=== PATIENT | female | born 1975 | race Caucasian/White ===

== ENCOUNTER 2022-08-05 00:12 | Day surgery (SDC) | payer OTHER, SELFPAY ==
[2022-07-27 12:38] VITALS: BMI 24.1
--- NOTE | 2022-07-27 12:41 | PC.NURSE ---
Report to the Outpatient Waiting Room, entrance under the green pavilion located off [facility], at time 10:00 on date 08/05/22. Planned Procedure Time: 12:00. Time changes happen often and if your time is changed the preop area will call you the afternoon before. - You and your visitor will be asked to self-screen and do not enter if you have any COVID symptoms. - Only one visitor is requested with a max of two and NO children visitors are allowed at this time. - The patient visitor may be requested to leave or wait in car when not with patient due to distancing restrictions. - A mask is optional within the hospital at this time. Patients may have clear liquids (water, carbonated beverages, clear teas, apple juice) until 3 hours prior to surgery (9:00) with a maximum of 20 ounces. - No food from midnight until time of surgery Take the following medications with a SIP of water the morning of surgery: NONE DO NOT STOP ANY OF YOUR OTHER PRESCRIPTION MEDICATIONS PRIOR TO SURGERY EXCEPT THE FOLLOWING Medications to discontinue per physician: N/A Date to take last dose: N/A Please no make-up, nail sami, hairspray, perfume, deodorant, or body powder the day of surgery. No jewelry (including any body piercings) or valuables the day of surgery, leave them at home. Please take a shower or bath the night before, or the morning of, surgery with an antibacterial soap. Wear comfortable, loose fitting clothing. - Jewelry must be removed prior to entering the operating room. Rings and piercings that are not removed may be cut off. - The hospital will not accept responsibility for valuables. - Please leave all valuables, including medications, at home the day of surgery. If you are going home after surgery, a licensed hyster driver must drive you home. - NO public transportation without another adult if you receive anesthesia. - We recommend that an adult stay with you for 24 hours following discharge. - We also recommend that you do not drive, make important decision, drink alcoholic beverages, or take any drugs that were not prescribed by your health care provider for at least 24 hours after your discharge time. Follow any additional instructions given to you from your surgeon. If you or anyone in your household have experienced Covid symptoms in the past week, please notify your surgeon or the nurse liaison at the phone number below for possible testing. Telephone instructions given to PT - TIMOTHY PHELAN and asked if any additional questions and then verbalized understanding. Patient advised to call surgeon office or pre surgery nurse liaison [phone] if any additional questions.
[2022-08-05] VITALS (12 sets, daily range): BP systolic 98–143; BP diastolic 55–90; PULSE 70–97; RESP 13–18; TEMP 36.1–36.4; O2SAT 97–100
--- NOTE | 2022-08-05 06:02 | ECG_ITS ---
Measurements Intervals [place] Rate: 64 P: 66 [place]: 122 QRS: 68 QRSD: 82 T: 75 QT: 349 QTc: 361 Interpretive Statements SINUS RHYTHM NORMAL ECG NO PREVIOUS ECG AVAILABLE FOR COMPARISON Electronically Signed On 08-06-2022 14:52:24 CDT by Sriram Salguero M.D.
[2022-08-05 10:44] LABS: Urine Cotinine NEGATIVE
[2022-08-05 10:49] LABS: Hematocrit 46.3 % (37.0-47.0); Hemoglobin 15.8 g/dL (12.0-15.0)
[2022-08-05] MEDS: LACTATED RINGERS 1,000 ML 30 ML IV CONT ×2 (10:50→15:43)
[2022-08-05] MEDS: SCOPOLAMINE 1.5 MG PATCH TRANSDERM (10:51)
--- NOTE | 2022-08-05 11:15 | WPDANESEPPF ---
Anes - Initial Pre Proc Eval Procedure: Operation Date: 08/05/22 12:00 Proposed Procedures p Abdominoplasty with Liposuction - Santosh Zhao MD Date/Time: 08/05/22 11:15 Surgeon: Santosh Zhao MD Pre Op Diagnosis: skin laxity, localized adiposity Patient Data Age: 46 Gender: F Height: 1.65 m Weight: 66.5 kg Last Vital Signs Temp 97.0 F L 08/05/22 10:58 Pulse 83 08/05/22 10:58 Resp 18 08/05/22 10:58 BP 114/69 08/05/22 10:58 Pulse Ox 100 08/05/22 10:58 Allergies Allergy/AdvReac Type Severity Reaction Status Date / Time Sulfa (Sulfonamide Allergy Rash Verified 08/05/22 10:57 Antibiotics) Home Medications Medication Instructions Recorded Confirmed Type dextroamphetamine-amphetamine ER 30 mg PO DAILY 07/27/22 08/05/22 History 30 mg 24hr capsule,extend release (Adderall XR) Laboratory Tests 08/05/22 08/05/22 10:13 10:44 Hgb Pending Hct Pending Cotinine Negative Patient hx anesthesia problems: post op nausea/vomiting Family hx anesthesia problems: none Results Review: All pre-operative results and documents have been reviewed as part of the pre-operative evaluation. ON LICENSE OF [facility] Social History Social History Smoking status: Never smoker Alcohol intake: current Drinks per week: 4 Substance use: never Substance use type: does not use Living arrangements: with family Spiritual care concerns: No Anes - Eval Final PreProcedure Day of Procedure 08/05/22 11:15 Patient weight: normal Heart: regular rate and rhythm Lungs: clear to auscultation Airway: Mallampati scale class II Neurological: alert and oriented Last oral intake: >/= 8 hours ASA classification: II Emergent: no Anesthetic plan: proceed Anesthesia type and monitoring: general ETT and standard monitoring Results Review: All pre-operative results and documents have been reviewed as part of the pre-operative evaluation. Informed Consent: The patient's anesthetic plan and its attendant risks and benefits were discussed with the patient/family/POA. Questions were solicited and answers provided to the satisfaction of the patient/family/POA.
--- NOTE | 2022-08-05 11:23 | WPDHPUPDATE1 ---
History and Physical Update Update Date/Time: 08/05/22 11:23 History and Physical has been reviewed, including an updated exam of the patient. There are NO changes in the patient's condition. Risks, benefits, and alternatives have been discussed and questions answered. Patient agrees to proceed with procedure.
--- NOTE | 2022-08-05 11:24 | W.PM.PROC2 ---
Procedure Note - Detailed Date of Procedure 08/05/22 Pre-op Diagnosis skin laxity, localized adiposity Post-op Diagnosis Same Procedure Performed Progressive tension abdominoplasty with suction lipectomy Surgeon Santosh Zhao MD Anesthesia General Findings Tissue removed: 1283 grams Lipoaspirate: 1300 cc Description of Procedure They are here today for abdominoplasty. Previously and again today the risks, benefits, alternatives were discussed in extensive detail. I wanted them to be very realistic about the risks involved as well as expectations. We discussed aftercare and what to monitor for. I was very upfront about the risks of wound breakdown leading to loss of skin, open wounds, and need for additional procedures with permanent abdominal deformity. We discussed DVT/PE risks and management. Made sure answered all of their questions to their satisfaction today and consent was obtained. They were marked in the preoperative holding area with their verification. The patient was taken to the operating room placed supine on the operating table. Anesthesia was provided by anesthesiology. A Ku catheter was started. They were prepped and draped in a standard sterile fashion. A surgical time-out was taken. I placed the patient in a flexed position to verify the upper and lower markings would reach. I then placed supine. A thorough abdominal examination was completed. Stab incisions were made and tumescent solution infiltrated. Once adequate time was allowed for hemostasis a 5mm basket cannula was utilized in conjunction with a 3mm cannula to complete suction lipectomy based on S.A.F.E. technique in multiple planes and passes. There were turned to bilateral lateral decubitus position with care taken to protect them for injury during this process. Suction lipectomy continued to result based on pre-operative planning, intra-operative observation, and rolling pinch test which were in full agreement. A 10 blade was used to make the upper incision. I continued dissection down to the level of fascia. Elevated just what was necessary for repair of the diastasis. I then again flexed the bed to verify the upper skin flap would reach the lower markings without tension. Once verified I placed her supine once again and a 10 blade used to make the lower incision. I elevated up to level the umbilicus and left the umbilicus intact on a well-vascularized stalk. The intervening tissue was removed. A 2 mm blunt cannula with 0.5% bupivicaine was injected deep to the fascia bilaterally. I plicated the diastasis recti using 0 PDO stratafix barbed suture. This was in 2 separate layers using 2 separate sutures as well. I repaired around the umbilicus leaving plenty of room for well-vascularized stalk of the umbilicus with 2-0 PDS. I also repaired lateral to the rectus using two layers of 0 PDO stratafix. The patient was flexed and starting from superior to inferior began plication using 2-0 Vicryl to obliterate all space in a standard progressive tension fashion. At the umbilicus I marked out the location of the skin and inset this with 3-0 Monocryl and 4-0 Vicryl. I continued the remainder of the plication using 2-0 Vicryl until I reached my lower planned scar line. I trimmed any excess skin of the upper flap making sure this was a tension-free closure. A right 15 emeli drain was placed. I then approximated using a 3 point suture with 2-0 Vicryl followed by 3-0 stratafix ,running subcuticular 4-0 Monocryl, and tissue glue. Fluffs and an abdominal binder were placed. The patient was transferred to the bed in a flexed position. Aw[place] and taken to the PACU without difficulty. All instrument and sponge counts were correct at the end of the case. Estimated Blood Loss 75 Drains Yes (15 Emeli ) Packing No Pathology None sent Complications No immediate complications Condition Stable Disposition PACU
[2022-08-05] MEDS: ceFAZolin 2 GM/D5W 50 ML 2 GM/50 ML BAG IVPB (12:07)
[2022-08-05] MEDS: LACTATED RINGERS IRRIG 1,000 ML, LIDOCAINE HCL 1% LOCAL INJ 50 ML, EPINEPHrine HCL INJ ... INFILTRATE (12:07)
[2022-08-05] MEDS: BUPIVACAINE/EPINEPHRINE 0.5% 50 ML VIAL 60 ML INFILTRATE (12:07)
[2022-08-05] MEDS: TRANEXAMIC ACID 1,000MG/ISO100 1,000 MG/100 ML BAG 200 MG IVPB (12:15)
--- NOTE | 2022-08-05 14:01 | SUR.OPER ---
1 ampule of fentanyl checked out and given to Katherine Shane [employer]
[2022-08-05] MEDS: fentaNYL CITRATE INJ (*CRX) 100 MCG/2 ML VIAL 25 MCG IV PUSH (17:02)
[2022-08-05] MEDS: diphenhydrAMINE HCl INJ 50 MG/ML VIAL 25 MG IV PUSH (17:30)
[2022-08-05] MEDS: carisoprodoL (*CRX) 350 MG TABLET PO (18:54)
[2022-08-05] MEDS: ONDANSETRON INJ 4 MG/2 ML VIAL IV PUSH (18:57)
[2022-08-05] MEDS: KETOROLAC 15 MG/ML VIAL (*BKC) IV PUSH (18:57)
[2022-08-05] MEDS: DOCUSATE SODIUM 100 MG CAPSULE PO (21:32)
[2022-08-05] MEDS: ENOXAPARIN 40 MG/0.4 ML SYRINGE SUB-Q (21:32)
[2022-08-05] MEDS: oxyCODONE/ACETAMINOPHEN (*CRX) 5-325 MG TABLET PO (21:33)
[2022-08-06 00:45] VITALS: BP 93/52; PULSE 87; RESP 16; TEMP 36.8
[2022-08-06] MEDS: carisoprodoL (*CRX) 350 MG TABLET PO ×2 (00:47→07:21)
[2022-08-06 04:55] VITALS: BP 88/46; PULSE 90; RESP 16; TEMP 36.9
[2022-08-06 07:30] VITALS: BP 103/45; PULSE 81; RESP 16; TEMP 36.7; O2SAT 100
--- NOTE | 2022-08-06 07:32 | WPDPN ---
Progress Note: A&P Assessment and Plan (1) Skin laxity: Code(s): L57.4 - Cutis laxa senilis Status: Acute Assessment and Plan: Doing well after progressive tension abdominoplasty. Will discharge home. Today we had a lengthy discussion about the care. Activity limitations. What to monitor for. We discussed what is a medical emergency and when to proceed to the ER / dial 911. Call with all other questions or concerns. Will see her back. (2) Localized adiposity: Code(s): E65 - Localized adiposity Status: Acute Subjective Date/time seen: 08/06/22 07:32 Interval history: She is doing very well after progressive tension abdominoplasty. Pain controlled. No n/v. No f/c. No SOB. No CP. No calf tenderness. She had a little lightheadedness with ambulation last evening however today has ambulated with no concerns. She states her BP is always SBP < 100 and this is her baseline and she feels great now. Review of Systems Review of Systems: All systems reviewed & are unremarkable except as noted in HPI and below Exam Narrative: Alert & Oriented NOD Respiratory unlabored Abdomen healing well. No signs of infection. No hematoma. No seroma. Good color / calf refill. Drain removed. No calf tenderness. Negative Hudson's Objective Data Vital Signs Vital Signs: Vital Signs - 24 hr 08/05/22 10:58 08/05/22 15:43 08/05/22 16:00 Temperature 36.1 C L 36.2 C L Pulse Rate 83 74 70 Respiratory Rate 18 17 14 Blood Pressure 114/69 98/55 L 102/58 L Pulse Oximetry 100 100 100 Oxygen Delivery Simple Face Mask Simple Face Mask Oxygen Flow Rate 8 8 08/05/22 16:15 08/05/22 17:15 08/05/22 16:30 Temperature Pulse Rate 77 84 80 Respiratory Rate 14 13 15 Blood Pressure 138/83 131/90 131/84 Pulse Oximetry 98 100 100 Oxygen Delivery Room Air Room Air Room Air Oxygen Flow Rate 08/05/22 16:45 08/05/22 17:00 08/05/22 17:30 Temperature Pulse Rate 88 91 93 Respiratory Rate 16 15 14 Blood Pressure 143/86 H 124/68 127/78 Pulse Oximetry 100 100 100 Oxygen Delivery Room Air Room Air Room Air Oxygen Flow Rate 08/05/22 17:45 08/05/22 17:53 08/05/22 18:52 Temperature Pulse Rate 97 95 Respiratory Rate 16 16 Blood Pressure 133/81 143/77 H Pulse Oximetry 97 97 Oxygen Delivery Room Air Room Air Room Air Oxygen Flow Rate 08/05/22 18:52 08/06/22 00:45 08/06/22 04:55 Temperature 36.4 C 36.8 C 36.9 C Pulse Rate 89 87 90 Respiratory Rate 16 16 16 Blood Pressure 104/68 93/52 L 88/46 L Pulse Oximetry 100 Oxygen Delivery Oxygen Flow Rate Intake/Output Intake/Output: Intake & Output 08/03/22 08/04/22 08/05/22 08/06/22 23:59 23:59 23:59 23:59 Intake Total 850 1000 Output Total 675 450 Balance 175 550 Meds/Results Medications: Active Medications Generic Name Dose Route Start Last Admin Trade Name Freq PRN Reason Stop Dose Admin Carisoprodol 350 mg 08/05/22 18:00 08/06/22 07:21 Carisoprodol (*Crx) 350 Mg Tablet PO 350 mg Q6HR YONY Administration Diazepam 5 mg 08/05/22 15:29 Diazepam (*Crx) 5 Mg Tablet PO TID PRN Anxiety Docusate Sodium 100 mg 08/05/22 21:00 08/05/22 21:32 Docusate Sodium 100 Mg Capsule PO 100 mg Q12HR YONY Administration Enoxaparin Sodium 40 mg 08/05/22 21:00 08/05/22 21:32 Enoxaparin 40 Mg/0.4 Ml Syringe SUB-Q 40 mg DAILY YONY Administration Lactated Ringer's 1,000 mls @ 125 mls/hr 08/05/22 15:30 08/05/22 18:37 Lr - Lactated Ringers Iv IV CONT Not Given .Q8H YONY Ketorolac Tromethamine 15 mg 08/05/22 15:29 08/05/22 18:57 Ketorolac 15 Mg/Ml Vial (*Bkc) IV PUSH 15 mg Q6H PRN Administration Pain Rated 4-6 Morphine Sulfate 2 mg 08/05/22 15:29 Morphine Sulfate (*Crx) 2 Mg/Ml Inj IV PUSH Q2H PRN Pain Ondansetron HCl 4 mg 08/05/22 15:29 08/05/22 18:57 Ondansetron Inj 4 Mg/2 Ml Vial IV PUSH 4 mg Q6H PRN Administration
--- NOTE | 2022-08-06 07:37 | P.DS_ITS ---
DS: Admitting Diagnosis Discharge Date 08/06/2022 Admitting Diagnosis Skin laxity Localized adiposity DS: Discharge Diagnosis Discharge Diagnosis (1) Skin laxity: Code(s): L57.4 - Cutis laxa senilis Status: Acute (2) Localized adiposity: Code(s): E65 - Localized adiposity Status: Acute DS: Summary Hospital Course Hospital Course: Underwent progressive tension abdominoplasty with suction lipectomy. Post-op has done well. Will discharge home. Time Spent with Patient Time attestation: Total time spent providing and/or coordinating discharge services: Exam Narrative: Alert & Oriented NOD Respiratory unlabored Abdomen healing well. No signs of infection. No hematoma. No seroma. Good color / calf refill. Drain removed. No calf tenderness. Negative Hudson's DS: Data Data Completed and Pending Labs on day of discharge: Labs from last 24 hours 08/05/22 08/05/22 10:44 10:13 Hgb 15.8 H Hct 46.3 Cotinine Negative Discharge Plan Discharge Patient Disposition: Home, Self-Care Discharge Instructions: POST OPERATIVE DISCHARGE INSTRUCTIONS SANTOSH ZHAO M.D. [facility] [facility] [address] [place] [address] * No driving for 24 hours after anesthesia and while you are taking pain medication. * Take all prescribed medication as directed * Diet as tolerated. * No lifting or activity that raises blood pressure for 48 hours. * Regular walking / ambulation. * May shower 24 hours after surgery. Once you shower do not take pain medication before showering as the combination of medication and heat may cause you to feel dizzy or pass out. * No pools or tubs for 2 weeks. * Slowly stand up straight as tolerated. * No straining or lifting more than 20 pounds. * If no bowel movement within 24 hours may use laxative. * Call with any questions or concerns. * Dressing Care: Continue abdominal binder / foam 23 hours per day. If you have any questions or concerns, please call the office . If it is after hours you will be directed to the refrigeration plant operator exchange. Shortness of breath, chest pain, or other medical emergency dial 911 / proceed to the Emergency Room. Stand Alone Forms: General Discharge Instructions Follow-up/Referrals: Santosh Zhao MD [Physician] - 1 Week Discharge Medications: Continued dextroamphetamine-amphetamine [Adderall XR] 30 mg Capsule,Extended Release 24hr 30 mg PO DAILY
[2022-08-06] MEDS: oxyCODONE/ACETAMINOPHEN (*CRX) 5-325 MG TABLET PO (08:37)
[2022-08-06] MEDS: DOCUSATE SODIUM 100 MG CAPSULE PO (08:37)
--- NOTE | 2022-08-06 09:49 | WPDANESPN ---
Anes - Prog Note Post-Op Date/Time: 08/06/22 09:49 Cardiovascular status: normal Respiratory status: normal Airway patency: baseline Mental status: baseline Post-Op hydration status: normal Vital Signs: Last Vital Signs Temp 36.7 C 08/06/22 07:30 Pulse 81 08/06/22 07:30 Resp 16 08/06/22 07:30 BP 103/45 L 08/06/22 07:30 Pulse Ox 100 08/06/22 07:30 O2 Del Method Room Air 08/05/22 18:52 O2 Flow Rate 8 08/05/22 16:00 Pain Score (VAS): 2 I/O: Intake & Output 08/05/22 08/06/22 08/06/22 23:59 07:59 15:59 Intake Total 700 1000 Output Total 675 450 Balance 25 550 Laboratory Tests 08/05/22 10:44 08/05/22 08/05/22 10:13 10:44 Hgb 15.8 H Hct 46.3 Cotinine Negative Post-procedural complaints: none Patient Feedback: Patient satisfied with anesthetic care.
== END 2022-08-06 10:10 | disposition home or self-care (01) ==
LOC: ANHSURGERY 11:25 → ANHOB2 18:26
PROVIDERS: Anesthesiology; Visit Provider Surgery Plastic and Reconstructive Surgery
PROC: (CPT 15830; principal; 2022-08-05 12:00)
DX: Z41.1 Encounter for cosmetic surgery (principal); L57.4 Cutis laxa senilis; E65 Localized adiposity
CPT/HCPCS: 15830; 15847; 15877; 80307; 85014; 85018; 93005; 99199; A9270; J0171; J0690; J1100; J1170; J1200; J1650; J1885; J2250; J2370; J2405; J2704; J2710; J3010; J7120

== ENCOUNTER 2024-08-08 01:00 | Day surgery (SDC) | payer OTHER, SELFPAY ==
[2024-07-30 11:27] VITALS: BMI 24.1
--- NOTE | 2024-07-30 11:28 | PC.NURSE ---
Report to the Outpatient Waiting Room, entrance under the green pavilion located off [facility], at time _0600_ on date _[id number]_. Planned Procedure Time: _0730_.? Time changes happen often and if your time is changed the preop area will call you the afternoon before. - You and your visitor will be asked to self-screen and do not enter if you have any COVID symptoms. Please call surgeon if you need to reschedule. - A mask is optional within the hospital at this time. Patients may have clear liquids (water, carbonated beverages, clear teas, apple juice) until 3 hours prior to surgery with a maximum of 20 ounces. - No food from midnight until time of surgery and no smoking, or chewing tobacco (or any form of nicotine). No chewing gum, candy or mints. Take only the following medications with a SIP of water on the morning of surgery: ___None____ DO NOT STOP ANY OF YOUR OTHER PRESCRIPTION MEDICATIONS PRIOR TO SURGERY EXCEPT THE FOLLOWING Hold all vitamins and supplements for 3 days per anesthesiologist. Medications to discontinue per physician Date to take last dose Please no make-up, nail croatian, hairspray, perfume, deodorant, or body powder the day of surgery.? No jewelry (including any body piercings) or valuables the day of surgery, leave them at home.? Please take a shower or bath the night before, or the morning of, surgery with an antibacterial soap.? Wear comfortable, loose fitting clothing.? - Jewelry must be removed prior to entering the operating room.? Rings and piercings that are not removed may be cut off. - The hospital will not accept responsibility for valuables.? - Please leave all valuables, including medications, at home the day of surgery. If you are going home after surgery, a licensed transit driver must drive you home.? - NO public transportation without another adult if you receive anesthesia. - We recommend that an adult stay with you for 24 hours following discharge. - We also recommend that you do not drive, make important decision, drink alcoholic beverages, or take any drugs that were not prescribed by your health care provider for at least 24 hours after your discharge time. Follow any additional instructions given to you from your surgeon. Telephone instructions given to __Ama___and asked if any additional questions and then verbalized understanding. Patient advised to call surgeon office or pre surgery nurse liaison [phone] if any additional questions.
[2024-08-08] VITALS (8 sets, daily range): BP systolic 131–158; BP diastolic 65–97; PULSE 74–93; RESP 11–16; TEMP 36.1–36.6; O2SAT 95–100
[2024-08-08 06:41] LABS: BEDSIDEPREGUCG Negative (Negative)
[2024-08-08] MEDS: LACTATED RINGERS 1,000 ML 30 ML IV CONT ×3 (06:45→10:24)
--- NOTE | 2024-08-08 06:52 | WPDANESEPPF ---
Anes - Initial Pre Proc Eval Procedure: Operation Date: 08/08/24 07:30 Proposed Procedures p Bilateral Breast Implant Exchange, - Santosh Zhao MD s Bilateral Breast Mastopexy - Santosh Zhao MD Date/Time: 08/08/24 06:52 Surgeon: Santosh Zaho MD Pre Op Diagnosis: hx of breast aug, breast ptosis Patient Data Age: 48 Gender: F Height: 1.65 m Weight: 67 kg Last Vital Signs Temp 97.8 F 08/08/24 06:22 Pulse 76 08/08/24 06:22 Resp 16 08/08/24 06:22 BP 131/65 08/08/24 06:22 Pulse Ox 100 08/08/24 06:22 O2 Del Method Room Air 08/08/24 06:22 Allergies Allergy/AdvReac Type Severity Reaction Status Date / Time fentanyl Allergy Mild Itching Verified 07/30/24 11:19 Sulfa (Sulfonamide Allergy Rash Verified 07/30/24 11:19 Antibiotics) Home Medications ?Medication ?Instructions ?Recorded ?Confirmed ?Type dextroamphetamine-amphetamine ER 30 mg PO DAILY 07/27/22 07/30/24 History 30 mg 24hr capsule,extend release (Adderall XR) multivitamin (Daily Multi-Vitamin 1 tablet PO DAILY 07/30/24 07/30/24 History tablet) Laboratory Tests 08/08/24 08/08/24 06:22 06:40 POC Urine HCG, Qual Negative (Negative) Cotinine Pending Patient hx anesthesia problems: none Family hx anesthesia problems: none Results Review: All pre-operative results and documents have been reviewed as part of the pre-operative evaluation. [facility] Social History Social History Smoking status: Never smoker Alcohol intake: former Drinks per week: 4 Substance use: never Substance use type: does not use Living arrangements: with family Spiritual care concerns: No Anes - Eval Final PreProcedure Day of Procedure 08/08/24 06:52 Patient weight: normal Lungs: normal air movement Airway: Mallampati scale class II Neurological: alert and oriented Last oral intake: >/= 8 hours ASA classification: I Emergent: no Anesthetic plan: proceed Anesthesia type and monitoring: general LMA and standard monitoring Results Review: All pre-operative results and documents have been reviewed as part of the pre-operative evaluation. Pt active w HIIT workouts, no cp or sob. Informed Consent: The patient's anesthetic plan and its attendant risks and benefits were discussed with the patient/family/POA. Questions were solicited and answers provided to the satisfaction of the patient/family/POA.
[2024-08-08 06:58] LABS: Urine Cotinine NEGATIVE
--- NOTE | 2024-08-08 07:04 | WPDHPUPDATE1 ---
History and Physical Update Update Date/Time: 08/08/24 07:04 History and Physical has been reviewed, including an updated exam of the patient. There are NO changes in the patient's condition. Risks, benefits, and alternatives have been discussed and questions answered. Patient agrees to proceed with procedure.
[2024-08-08] MEDS: TRANEXAMIC ACID 1,000MG/ISO100 1,000 MG/100 ML BAG 200 MG IVPB (07:15)
--- NOTE | 2024-08-08 07:20 | W.PM.PROC2 ---
Procedure Note - Detailed Date of Procedure 08/08/24 Pre-op Diagnosis hx of breast aug, breast ptosis Post-op Diagnosis Same Procedure Performed Bilateral breast implant exchange Bilateral breast mastopexy Surgeon Santosh Zhao MD Anesthesia General Findings Inverted T Superior medial pedicle Previous implants: Bilateral intact silicone implants Sientra 435MP Replacement implants (new): Bilateral Nati SoftTouch Silicone 520cc Right: REF# [id number] SN [id number] Left: REF# [id number] SN [id number] Description of Procedure She is here today for bilateral breast augmentation mastopexy. Previously and again today the risks, benefits, alternatives were discussed in extensive detail. Had a lengthy discussion about implant size choice. Had a lengthy discussion about previous scars, options, and risks of wound breakdown, skin loss, NAC loss, and other complications related to revisional surgery after previous breast reduction. I wanted her to be very realistic about the risks involved as well as expectations. We discussed aftercare and what to monitor for. Made sure answered all of her questions to her satisfaction today and consent was obtained. Marked in the preoperative holding area with their verification. The patient was taken to the operating room placed supine on the operating table. Anesthesia was provided by anesthesiology. A surgical time-out was taken. We cleansed the skin and 1% lidocaine and 0.25% Marcaine with epinephrine was used anesthetize as a field block. She was prepped and draped in a standard sterile fashion. Tegaderm nipple Rodrigez were placed. A 15 blade used to make an incision just superior to the inframammary fold leaving a cusp of de-epithelized tissue at the t junction. Dissection was continued until the chest wall / capsule idnetified. Pocket was entered and implant removed. I irrigated with 3 liters of saline solution on TUR tumbing. Medial / superior capsulotomy and lateral popcorn capsulorraphy completed. Again, I copiously irrigated with saline solution and verified a strict hemostasis. Next the use a triple antibiotic and Betadine containing solution to irrigate the pocket. I washed my gloves with the triple antibiotic and Betadine solution. We washed the implant immediately upon opening it with this solution and only opened it when we needed it. I used implant funnel and no-touch technique. The implant was introduced into the pocket using the funnel. Having verified positioning of the implant this was closed using 2-0 PDS. I tailor tacked the breast into position. Placed her in a sitting position. Verified the nipple-areolar location based on preoperative planning as well as intraoperative observations and measurements in full agreement. She was placed supine. I de-epithelialized the pedicle. I then removed the inferior central portion of the breast need making sure the implant was well protected. I elevated medial and lateral tissue flaps as well for planned closure. I closed along the IMF with 2-0 Stratafix. Along the vertical with 2-0 PDS. I closed around the areola with 3-0 strata fix. 3-0 Monocryl along the vertical. 3-0 Stratafix along the IMF. I finally closed everything with running subcuticular 4-0 Monocryl and tissue glue. Fluffs and surgical bra were placed. Estimated Blood Loss 50 Drains No Packing No Pathology None sent Complications No immediate complications Condition Stable Disposition PACU
[2024-08-08] MEDS: ceFAZolin 2 GM/D5W 50 ML 2 GM/50 ML BAG IVPB (07:30)
[2024-08-08] MEDS: NACL 0.9% IRRIG POUR BOTTLE 900 ML, GENTAMICIN SULFATE INJ 160 MG, ceFAZolin 2 GM, POVI... IRRIGATION (07:30)
[2024-08-08] MEDS: LIDO 1%/EPINEPHRINE 1:100,000 50 ML VIAL 30 ML INFILTRATE (07:30)
[2024-08-08] MEDS: BUPivacaine HCL 0.25% PF 30 ML VIAL INFILTRATE (07:30)
[2024-08-08] MEDS: SCOPOLAMINE 1 MG PATCH 1 PATCH TRANSDERM (08:12)
[2024-08-08] MEDS: diphenhydrAMINE HCl INJ 50 MG/ML VIAL 12.5 MG IV PUSH (10:18)
[2024-08-08] MEDS: diphenhydrAMINE HCl INJ 50 MG/ML VIAL 25 MG IV PUSH (10:34)
== END 2024-08-08 11:41 | disposition home or self-care (01) ==
PROVIDERS: Visit Provider Surgery Plastic and Reconstructive Surgery
PROC: (CPT 19342; principal; 2024-08-08 07:30)
PROC: (CPT 19316; 2024-08-08 07:30)
DX: Z41.1 Encounter for cosmetic surgery (principal); N64.81 Ptosis of breast; F90.9 Attention-deficit hyperactivity disorder, unspecified type; Z98.890 Other specified postprocedural states
CPT/HCPCS: 19370; 19325; 19316; 80307; A9270; J0171; J0690; J1100; J1171; J1200; J1580; J2003; J2004; J2250; J2405; J2704; J3010; J7120